=== PATIENT | male | born 1965 | race Hispanic/Latino ===

== ENCOUNTER 2017-04-20 22:42 | Emergency (ER) | payer OTHER ==
[~2017-04-20] VITALS: Ht 177.8 cm; Wt 127.0 kg
[2017-04-20] MEDS ORDERED: ONDANSETRON HCL 4 MG ORAL DISINTEGRATING TAB SL ONE (23:15)
[2017-04-20] MEDS ORDERED: KETOROLAC TROMETHAMINE 30 MG/ML VIAL IV ONE (23:15)
[2017-04-21] MEDS ORDERED: ZOFRAN ODT4 MG SL (00:46)
[2017-04-21] MEDS ORDERED: FLOMAX0.4 MG PO (00:46)
[2017-04-21] MEDS ORDERED: KETOROLAC TROME10 MG PO (00:46)
[2017-04-21 00:54] VITALS: BP 159/80
== END 2017-04-21 00:56 | disposition home or self-care (01) ==
LOC: FSED 22:42
DX: R10.9 Unspecified abdominal pain (principal); R30.0 Dysuria; R11.2 Nausea with vomiting, unspecified; N20.1 Calculus of ureter
CPT/HCPCS: 74176; 96374; 99283; J1885